=== PATIENT | female | born 1975 | race African-American/Black ===

== ENCOUNTER 2016-10-25 12:31 | Emergency (ER) | payer SELFPAY ==
[~2016-10-25] VITALS: Wt 78.0 kg
[~2016-10-25 12:31] MED LIST: ABCC1C PO; CYCL-319 PO; IBUP-1542 PO; TRAM50TA2 PO
== END 2016-10-25 14:29 | disposition left against medical advice (07) ==
LOC: FTE 12:31
DX: Z53.21 Procedure and treatment not carried out due to patient leaving prior to being seen by health care provider (principal)

== ENCOUNTER 2016-11-23 17:55 | Emergency (ER) | payer OTHER ==
[~2016-11-23] VITALS: Wt 54.0 kg
[2016-11-23] MEDS ORDERED: HYDROCODONE/APAP (5/325) TAB PO ONE (19:00)
[2016-11-23] MEDS ORDERED: CYCLOBENZAPRINE 10 MG TAB PO ONE (19:00)
[2016-11-23] MEDS ORDERED: HYDR-906 PO (19:10)
[2016-11-23] MEDS ORDERED: ORPH100T PO (19:10)
[2016-11-23 19:36] VITALS: BP 146/87; RESP 18
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
== END 2016-11-23 19:37 | disposition home or self-care (01) ==
LOC: FTE 17:55
DX: M54.2 Cervicalgia (principal); Z87.891 Personal history of nicotine dependence
CPT/HCPCS: Z7610 ×2; 99284

== ENCOUNTER 2017-02-23 03:10 | Emergency (ER) | payer OTHER ==
[~2017-02-23] VITALS: Ht 167.6 cm; Wt 54.5 kg
[~2017-02-23 03:10] MED LIST changes: +HYDR-906 PO; +ORPH100T PO
[2017-02-23] MEDS ORDERED: HYDROmorphONE 1 MG/ML SYG IV STA ×2 (03:13→03:17)
[2017-02-23] MEDS ORDERED: SOD CHLORIDE 0.9% IV ONE (03:24)
[2017-02-23 03:25] VITALS: Ht 167.6 cm; Wt 54.5 kg
[2017-02-23] MEDS ORDERED: HYDROmorphONE 2 MG/ML SYG IV STA (03:25)
[2017-02-23] MEDS ORDERED: DIPHTH/TET/ACEL PERTUSS (ADULT) 0.5 ML VIAL IM* ONE (03:30)
--- NOTE | 2017-02-23 03:38 | RADRPT ---
PROCEDURE: XR Chest. CLINICAL INDICATION: Trauma, chest pain TECHNIQUE: Single frontal view of the chest was obtained COMPARISON: 03/23/2016 FINDINGS: The heart and mediastinum are within normal limits. Patchy densities are seen in bilateral lower lungs which could be secondary to lung contusions with history of trauma. Several of these have a rounded consideration and follow-up is recommended to ev aluate for possible nodular densities. There is no pleural effusion or pneumothorax. IMPRESSION: Patchy densities are seen in bilateral lower lungs which could be secondary to lung contusions with history of trauma. Several of these have a rounded consideration and follow-up is recommended to ev aluate for possible nodular densities. RPTAT: HJES .Khris Vargas MD, MD Date Time Electronically viewed and signed by .Khris Vargas MD, on 02/23/2017 03:38 .S/
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
[2017-02-23] MEDS ORDERED: PROPOFOL 100 ML ONE ×2 (03:50→08:13)
[2017-02-23] MEDS ORDERED: HYDROmorphONE 1 MG/ML SYG IV PRN (04:00)
[2017-02-23 04:09] LABS: ALBUMIN 1.6 g/dl (3.3-4.9); CALCIUM 7.1 mg/dl (8.4-10.2); CREATININE 0.38 mg/dl (0.44-1.00); POTASSIUM 3.7 mmol/L (3.5-5.1); TOTAL PROTEIN 3.1 g/dl (6.1-8.1)
[2017-02-23 04:12] LABS: INR 1.97; PARTIAL THROMBOPLASTIN TIME 38.1 Sec (25.0-35.0); PROTIME 22.6 Sec (12.2-14.2); PT RATIO 1.8
[2017-02-23] MEDS ORDERED: LACTATED RINGER'S 2,200 ML IV ONE ×2 (04:24→11:30)
[2017-02-23 04:27] LABS: ABNORMAL IP MESSAGE 1; BASOPHILS % 0.2 % (0.0-2.0); EOSINOPHILS % 0.2 % (0.0-7.0); HEMATOCRIT 16.7 % (37.0-47.0); LYMPHOCYTES # 1.2 10^3/ul (0.8-2.9); LYMPHOCYTES % 18.8 % (15.0-51.0); MEAN CORPUSCULAR HEMOGLOBIN 28.7 pg (29.0-33.0); MEAN CORPUSCULAR HGB CONC 31.1 g/dl (32.0-37.0); MEAN CORPUSCULAR VOLUME 92.3 fl (82.0-101.0); MEAN PLATELET VOLUME 11.4 fl (7.4-10.4); MONOCYTE # 0.4 10^3/ul (0.3-0.9); MONOCYTES % 5.7 % (0.0-11.0); NEUTROPHIL # 4.7 10^3/ul (1.6-7.5); NEUTROPHILS % 74.3 % (39.0-77.0); PLATELET COUNT 141 10^3/UL (140-415); RED BLOOD COUNT 1.81 10^6/ul (4.20-5.40); RED CELL DISTRIBUTION WIDTH 16.1 % (11.5-14.5)
[2017-02-23] MEDS ORDERED: DEXTROSE 50% 50 ML SYRINGE IV ONE (04:30)
[2017-02-23 04:31] LABS: POSITIVE DIFF @See below
[2017-02-23 04:35] LABS: HEMOGLOBIN 5.2 g/dl (12.0-16.0)
--- NOTE | 2017-02-23 05:15 | RADRPT ---
PROCEDURE: CHEST - 1 VIEW February 23, 2017 of 04:12 a.m. CLINICAL INDICATION: 41-year-old female with respiratory distress. TECHNIQUE: A single frontal AP portable view of the chest was performed. The images were reviewed on a PACS workstation. COMPARISON: Chest x-ray March 23, 2016; chest x-ray February 23, 2017 at 03:28 a.m. FINDINGS: There has been interval placement of endotracheal tube with the tip in the upper trachea approximate ly 8.5 cm above the yury. There is a nasogastric tube identified within the left upper quadrant s tomach region. The cardiomediastinal silhouette has a normal appearance. There is been clearing of the previously identified lower lung zone atelectasis. There is no evidence for an infiltrate. Ther e is no evidence for congestive heart failure. There is no evidence for pneumothorax. The osseous st ructures are intact. IMPRESSION: 1. Endotracheal tube with the tip in the upper trachea. 2. Nasogastric tube in place. 3. Better inspiration with clearing bilateral lower lung zone atelectasis. .Nolberto Romero MD, MD Date Time Electronically viewed and signed by .Nolberto Romero MD, on 02/23/2017 05:14 .M/
[2017-02-23 05:16] LABS: AADO2 Arterial 41.9 mmHg (7.0-24.0); Allen Test ACCEPTAB; Arterial COHb 5.2 % (0.0-3.0); Arterial Fraction of Oxyhgb 93.1 % (93.0-99.0); Arterial HCO3 17.3 mmol/L (22.0-26.0); Arterial MetHb 0.4 % (0.0-1.5); Arterial Total Hemglobin 10.9 g/dl (12.0-18.0); MODE VENT - AC
[2017-02-23 05:55] LABS: OVALOCYTES 1+ (0-0)
[2017-02-23] MEDS ORDERED: NAPR-260 PO (05:55)
[2017-02-23 05:56] LABS: BURR CELLS 2+
[2017-02-23] MEDS ORDERED: FENTAnyl (DRIP) 1000 mcg/100mL 100 ML IV SCH (06:00)
[2017-02-23] MEDS ORDERED: MIDAZOLAM (DRIP) 50 mg/50 mL 50 ML IV SCH (06:00)
[2017-02-23] MEDS ORDERED: PROPOFOL 100 ML IV STA ×2 (06:13→08:11)
[2017-02-23] MEDS ORDERED: ROCURONIUM 50 MG INJ ONE (07:00)
[2017-02-23] MEDS ORDERED: MIDAZOLAM 1 MG/ML 2 ML INJ IV ONE (07:00)
[2017-02-23] MEDS ORDERED: PROPOFOL 200 MG INJ ONE (07:00)
[2017-02-23] MEDS ORDERED: ETOMIDATE 20 MG INJ ONE (07:00)
[2017-02-23] MEDS ORDERED: FENTAnyl 50 MCG/ML VIAL IV ONE (07:00)
[2017-02-23 08:05] LABS: CALCIUM 8.1 mg/dl (8.4-10.2); CREATININE 0.55 mg/dl (0.44-1.00); POTASSIUM 3.3 mmol/L (3.5-5.1)
[2017-02-23 08:25] LABS: BASOPHILS % 0.3 % (0.0-2.0); EOSINOPHILS % 0.2 % (0.0-7.0); HEMATOCRIT 30.9 % (37.0-47.0); HEMOGLOBIN 9.9 g/dl (12.0-16.0); LYMPHOCYTES # 1.2 10^3/ul (0.8-2.9); LYMPHOCYTES % 13.1 % (15.0-51.0); MEAN CORPUSCULAR HEMOGLOBIN 29.6 pg (29.0-33.0); MEAN CORPUSCULAR VOLUME 92.5 fl (82.0-101.0); MEAN PLATELET VOLUME 11.8 fl (7.4-10.4); MONOCYTE # 0.5 10^3/ul (0.3-0.9); MONOCYTES % 5.8 % (0.0-11.0); NEUTROPHILS % 80.1 % (39.0-77.0); PLATELET COUNT 235 10^3/UL (140-415); RED BLOOD COUNT 3.34 10^6/ul (4.20-5.40); RED CELL DISTRIBUTION WIDTH 16.5 % (11.5-14.5); WHITE BLOOD COUNT 8.8 10^3/ul (4.8-10.8)
[2017-02-23 09:30] VITALS: BP 152/76; PULSE 74; RESP 14; TEMP 97.6
[2017-02-26 09:45] LABS: WHITE BLOOD COUNT 6.3 10^3/ul (4.8-10.8)
== END 2017-02-23 09:49 | disposition short-term general hospital (02) ==
LOC: E/R 03:10
DX: T52.0X1A Toxic effect of petroleum products, accidental (unintentional), initial encounter (principal); F17.210 Nicotine dependence, cigarettes, uncomplicated; T20.62XA Corrosion of second degree of lip(s), initial encounter; T22.632A Corrosion of second degree of left upper arm, initial encounter; T22.631A Corrosion of second degree of right upper arm, initial encounter; T23.631A Corrosion of second degree of multiple right fingers (nail), not including thumb, initial encounter; T22.652A Corrosion of second degree of left shoulder, initial encounter; R07.9 Chest pain, unspecified; X04.XXXA Exposure to ignition of highly flammable material, initial encounter; Y92.9 Unspecified place or not applicable; Z23 Encounter for immunization
CPT/HCPCS: 31500; 36600; 51702; 71010; 80048; 80076; 80306; 82803; 83605; 84703; 85025; 85610; 85730; 86850; 86900; 86901; 90715; 94002; J1170; J2250; J3010; J7030; J7120; Z7610; 90471; 96361; 96374; 96375

== ENCOUNTER 2017-12-12 15:18 | Day surgery (SDC) | END 2017-12-12 19:15 | disposition home or self-care (01) ==

== ENCOUNTER 2018-03-01 07:49 | Emergency (ER) | END 2018-03-01 09:10 | disposition home or self-care (01) ==

== ENCOUNTER 2018-09-21 14:16 | Emergency (ER) | payer OTHER ==
[~2018-09-21] VITALS: Ht 167.6 cm; Wt 54.5 kg
[~2018-09-21 14:16] MED LIST changes: -CYCL-319 PO; +CYCL10TA7 PO; +FER325 PO; +FOLIC ACID PO; +HYDR-4011 PO; -HYDR-906 PO; +NAPR-985 PO; +PREN1TAB79 PO
[2018-09-21 14:18] VITALS: BP 117/64; PULSE 93; RESP 16; Ht 167.6 cm; Wt 54.5 kg
--- NOTE | 2018-09-21 15:13 | ERD ---
ER Documentation Chief Complaint Chief Complaint pt bib family with c/o sore throat x 4 days "bump to back of throat" HPI 42-year-old female in 16-week of presents due to feeling a mass right side of her throat as well as having sore throat for the past 4 days. Patient states that she feels it when he swallows but denies difficulty swallowing, drooling, trismus. Patient also denies fevers, cough. In addition patient states that she has been feeling diminished movement for the past 2 days. She had one episode 2 days ago where she experienced periumbilical pain which resolved quickly on its own. Denies spotting, current abdominal pain. Denies past medical history. Denies allergies. Denies medications. Denies alcohol, tobacco, drug use. Up to date on vaccines. ROS All systems reviewed and are negative except as per history of present illness. Medications Home Meds Active Scripts Ibuprofen* (Motrin*) 600 Mg Tab, 600 MG PO Q6H PRN for PAIN AND OR ELEVATED TEMP, #30 TAB Prov:KEE MILLER 03/01/18 Hydrocodone/Acetaminophen ([place] 5-325 Tablet) 1 Each Tablet, 1 TAB PO Q6H PRN for PAIN, #10 TAB Prov:JASON WELCH 11/23/16 Orphenadrine Citrate (Norflex) 100 Mg Tablet.sa, 100 MG PO BID for 5 Days, TAB.SA Prov:YURI,JASON C 11/23/16 Cyclobenzaprine Hcl* (Cyclobenzaprine Hcl*) 10 Mg Tablet, 10 MG PO TID, #15 TAB 0 Refills Prov:CLAUDIA SMITH NP 05/24/16 Ibuprofen* (Motrin*) 600 Mg Tab, 600 MG PO Q6 for 5 Days, #20 TAB 0 Refills Prov:CLAUDIA SMITH NP 05/24/16 Tramadol HCl (Tramadol HCl) 50 Mg Tablet, 50 MG PO Q6, #20 TAB Prov:ALAN CASTRO DO 03/23/16 Reported Medications Ferrous Sulfate* (Ferrous Sulfate*) 325 Mg Tabec, 325 MG PO DAILY, TAB 12/12/17 [Folic Acid] No Conflict Check, PO DAILY 12/12/17 Vit W-Ca,Fe,FA(<1 mg) ( Vitamins) 1 Each Tablet, 1 EACH PO DAILY, TAB 12/12/17 Naproxen* (Naprosyn*) 500 Mg Tablet, 500 MG PO BID, TAB 02/23/17 Hnovradzikngz-Rddsrmsrzg-Mztfwzlf-Codeine* (Fioricet w/Codeine*) [id number]-30MG Cap, 1 CAP PO BID PRN for PAIN LEVEL 1-5, CAP 03/23/16 Allergies Allergies: Coded Allergies: No Known Allergy (Verified , 03/23/16) PMhx/Soc History of Surgery: Yes (C SECTION X3,SKIN GRAFTS,UMBILICAL HERNIAREPAIR,APPENDECTOMY) Anesthesia Reaction: No Hx Neurological Disorder: Yes (MIGRAINES) Hx Respiratory Disorders: No Hx Cardiac Disorders: No Hx Psychiatric Problems: No Hx Miscellaneous Medical Probl: No Hx Alcohol Use: No Hx Substance Use: No Hx Tobacco Use: Yes Smoking Status: Former smoker FmHx Family History: No diabetes, No coronary disease, No other Physical Exam Vitals Vital Signs Date Temp Pulse Resp B/P (MAP) Pulse Ox O2 O2 Flow FiO2 Time Delivery Rate 09/21/18 98.3 93 16 117/64 99 14:18 (81) Physical Exam Const: No acute distress Head: Atraumatic Eyes: Normal Conjunctiva ENT: Normal External Ears, Nose and Mouth. Tonsils are nonerythematous or edematous without exudates bilaterally. Uvula is midline. Airway is patent and no masses noted. Neck: Full range of motion. No meningismus. Resp: Clear to auscultation bilaterally Cardio: Regular rate and rhythm, no murmurs Abd: Soft, non tender, non distended. Normal bowel sounds Ext: No cyanosis, or edema Neur: Awake and alert Psych: Normal Mood and Affect Result Diagram: 09/21/18 1514 09/21/18 1514 Results 24 hrs Laboratory Tests Test 09/21/18 15:09 09/21/18 15:14 Urine Color YELLOW Urine Clarity SLIGHTLY CLOUDY Urine pH 5.0 Urine Specific [place] 1.019 Urine Ketones NEGATIVE mg/dL Urine Nitrite NEGATIVE mg/dL Urine Bilirubin 1+ mg/dL Urine Urobilinogen NEGATIVE mg/dL Urine Leukocyte Esterase NEGATIVE Yoly/ul Urine Microscopic RBC 34 /HPF Urine Microscopic WBC 2 /HPF Urine Mucus FEW /HPF Urine Hemoglobin 3+ mg/dL Urine Glucose NEGATIVE mg/dL Urine Total Protein NEGATIVE mg/dl White Blood Count 9.9 10^3/ul Red Blood Count 2.90 10^6/ul Hemoglobin 10.9 g/dl Hematocrit 29.4 % Mean Corpuscular Volume 101.4 fl Mean Corpuscular Hemoglobin 37.6 pg Mean Corpuscular Hemoglobin Concent 37.1 g/dl Red Cell Distribution Width 14.6 % Platelet Count 239 10^3/UL Mean Platelet Volume 10.1 fl Immature Granulocytes % 0.500 % Neutrophils % 66.6 % Lymphocytes % 20.2 % Monocytes % 7.1 % Eosinophils % 5.1 % Basophils % 0.5 % Nucleated Red Blood Cells % 0.0 /100WBC Immature Granulocytes # 0.050 10^3/ul Neutrophils # 6.6 10^3/ul Lymphocytes # 2.0 10^3/ul Monocytes # 0.7 10^3/ul Eosinophils # 0.5 10^3/ul Basophils # 0.1 10^3/ul Nucleated Red Blood Cells # 0.0 10^3/ul Sodium Level 136 mmol/L Potassium Level 4.7 mmol/L Chloride Level 104 mmol/L Carbon Dioxide Level 27 mmol/L Anion Gap 5 Blood Urea Nitrogen 11 mg/dl Creatinine 0.42 mg/dl Est Glomerular Filtrat Rate mL/min > 60 mL/min Glucose Level 90 mg/dl Calcium Level 10.1 mg/dl Total Bilirubin 0.0 mg/dl Direct Bilirubin 0.00 mg/dl Indirect Bilirubin 0.0 mg/dl Aspartate Amino Transf (AST/SGOT) 29 IU/L Alanine Aminotransferase (ALT/SGPT) 18 IU/L Alkaline Phosphatase 60 IU/L Total Protein 7.7 g/dl Albumin 4.4 g/dl Globulin 3.30 g/dl Albumin/Globulin Ratio 1.33 Beta HCG, Quantitative 67261.0 mIU/ml Procedures/MDM DIAGNOSTIC IMAGING REPORT Patient: KEHINDE DORAN : 1975 Age: 42 Sex: F MR #: [id number] DOS: 09/21/18 1458 Ordering MD: EULALIA THAYER Location: [facility] Room/Bed: PROCEDURE: Ultrasound soft tissue neck non-vascular. CLINICAL INDICATION: Right neck mass. TECHNIQUE: Targeted sonographic evaluation of the area of clinical interest in the right neck was performed using a high-frequency transducer using moncada scale and color Doppler techniques. COMPARISON: None. FINDINGS: Targeted sonographic evaluation of the right neck demonstrates a normal appearing right submandibular gland, measuring 3.1 x 2.9 x 1.2 cm. There is no free fluid or fluid collection. No lymphadenopathy. No mass. IMPRESSION: Targeted sonographic evaluation of the area of clinical concern in the right neck demonstrates no focal abnormality. RPTAT: EE .Jhonatan Lynch MD, MD Date Time Electronically viewed and signed by .Jhonatan Lynch MD, MD on 09/21/2018 16:31 .C/ CC: EULALIA THAYER [id number] DIAGNOSTIC IMAGING REPORT Patient: KEHINDE DORAN : 1975 Age: 42 Sex: F MR #: [id number] DOS: 09/21/18 1458 Ordering MD: EULALIA THAYER Location: [facility] Room/Bed: PROCEDURE: US OB. CLINICAL INDICATION: Decreased movement. TECHNIQUE: Multiple sonographic images of the pelvis were obtained. Transabdominal imaging only was performed. COMPARISON: 07/25/2018. FINDINGS: Cardiac activity is present with 148 beats per minute. Presentation is breech. Measurements were made in order to determine age. The results are as follows: BPD = 16 w 3 d HC = 16 w 3 d AC = 17 w 3 d FL = 16 w 2 d Estimated gestational age is approximately 16 weeks and 5 days. Estimated weight is 171 g. The placenta is fundal in location, with no evidence of previa. The maximum vertical pocket measures 6.5 cm. IMPRESSION: Single, live intrauterine with estimated age of 16 weeks, 5 days. No acute or significant abnormality. RPTAT: EE .Jhonatan Lynch MD, MD Date Time Electronically viewed and signed by .Jhonatan Lynch MD, MD on 09/21/2018 16:29 .C/ CC: EULALIA THAYER [id number] ER course: CBC, CMP, UA, transabdominal ultrasound, ultrasound, rapid strep. MDM: 42-year-old female in 16-week of presents due to feeling a mass right side of her throat as well as having sore throat for the past 4 days. Patient states that she feels it when he swallows but is not difficulty swallowing, drooling, trismus. Patient also denies fevers, cough. In addition patient states that she has been feeling diminished movement for the past 2 days. She had one episode 2 days ago where she experienced periumbilical pain which resolved quickly on its own. Denies spotting, current abdominal pain. Regarding sore throat, patient's throat exam was within normal limits and there was no sign of peritonsillar abscess. In addition I have low suspicion for retropharyngeal abscess or epiglottitis patient patient history and exam. Ultrasound was performed to x-rays patent patient's concern about palpable mass on her left mandibular area of the neck. Results were within normal limits. In addition an abdominal OB ultrasound was performed due to patient's pain of diminished movement over the last 2 days. Results were within normal limits as well. Results within normal limits for follow-up blood work as well as UA and rapid strep. Patient advised that she most likely has viral pharyngitis for which she can take Tylenol. Patient educated that ibuprofen is not appropriate to do her status. Patient discharged with strict ER precautions. Patient advised to follow up with PMD. All questions answered at discharge. Departure Diagnosis: Primary Impression: Sore throat Additional Impression: movement not palpable Trimester: second trimester Qualified Codes: Z34.92 - Encounter for supervision of normal , unspecified, second trimester Condition: Stable EULALIA THAYER Sep 21, 2018 15:13
== END 2018-09-21 17:15 | disposition home or self-care (01) ==
LOC: FTE 14:16
DX: O99.512 Diseases of the respiratory system complicating pregnancy, second trimester (principal); O36.8920 Maternal care for other specified fetal problems, second trimester, not applicable or unspecified; J02.9 Acute pharyngitis, unspecified; Z3A.16 16 weeks gestation of pregnancy
CPT/HCPCS: 76536; 76805; 80053; 81001; 84702; 85025; 87880; Z7502

== ENCOUNTER 2018-09-27 15:49 | Emergency (ER) | payer OTHER ==
[~2018-09-27] VITALS: Wt 71.0 kg
[2018-09-27 15:52] VITALS: Wt 71.0 kg
[2018-09-27] MEDS ORDERED: DIPHENHYDRAMINE 50 MG INJ IV STA (17:08)
[2018-09-27] MEDS ORDERED: METOCLOPRAMIDE 10 MG INJ IV STA (17:08)
[2018-09-27] MEDS ORDERED: SUMATRIPTAN 50 MG TAB PO STA (17:08)
[2018-09-27] MEDS ORDERED: SOD CHLORIDE 0.9% 1,000 ML IV STA (17:08)
[2018-09-27] MEDS ORDERED: ACETAMINOPHEN 325 MG TAB PO STA (17:08)
[2018-09-27] MEDS ORDERED: MAGNESIUM SULFATE 2 GM/50 ML 50 ML IVPB ONE (17:30)
--- NOTE | 2018-09-27 18:28 | ERD ---
ER Documentation Chief Complaint Chief Complaint HEADACHE WITH NAUSEA 17 WEEKS PREG HPI Is a 42-year-old female presents with a gradual onset headache times 3 days. Patient is currently 17 weeks , she states that she has been having nausea and vomiting associated with this, she went to [facility] yesterday, and states that they gave her Benadryl and Reglan, but this has not helped and the headache has persisted. She denies fever, she has some abdominal cramping, but no vaginal bleeding. She endorses photophobia. ROS All systems reviewed and are negative except as per history of present illness. Medications Home Meds Active Scripts Metoclopramide* (Reglan*) 10 Mg Tablet, 10 MG PO Q6 PRN for NAUSEA AND/OR VOMITING, #10 TAB Prov:REKHA SOLANO MD 09/27/18 Acetaminophen* (Tylophen*) 500 Mg Capsule, 2 CAP PO Q8H PRN for PAIN AND OR ELEVATED TEMP, #30 CAP Prov:REKHA SOLANO MD 09/27/18 Ibuprofen* (Motrin*) 600 Mg Tab, 600 MG PO Q6H PRN for PAIN AND OR ELEVATED TEMP, #30 TAB Prov:KEE MILLER 03/01/18 Hydrocodone/Acetaminophen ([place] 5-325 Tablet) 1 Each Tablet, 1 TAB PO Q6H PRN for PAIN, #10 TAB Prov:JASON WELCH 11/23/16 Orphenadrine Citrate (Norflex) 100 Mg Tablet.sa, 100 MG PO BID for 5 Days, TAB.SA Prov:JASON WELCH 11/23/16 Cyclobenzaprine Hcl* (Cyclobenzaprine Hcl*) 10 Mg Tablet, 10 MG PO TID, #15 TAB 0 Refills Prov:CLAUDIA SMITH NP 05/24/16 Ibuprofen* (Motrin*) 600 Mg Tab, 600 MG PO Q6 for 5 Days, #20 TAB 0 Refills Prov:CLAUDIA SMITH NP 05/24/16 Tramadol HCl (Tramadol HCl) 50 Mg Tablet, 50 MG PO Q6, #20 TAB Prov:ALAN CASTRO DO 03/23/16 Reported Medications Ferrous Sulfate* (Ferrous Sulfate*) 325 Mg Tabec, 325 MG PO DAILY, TAB 12/12/17 [Folic Acid] No Conflict Check, PO DAILY 12/12/17 Vit W-Ca,Fe,FA(<1 mg) ( Vitamins) 1 Each Tablet, 1 EACH PO DAILY, TAB 12/12/17 Naproxen* (Naprosyn*) 500 Mg Tablet, 500 MG PO BID, TAB 02/23/17 Gcnxalljhdkos-Yvuuexihgv-Kjhgjpmn-Codeine* (Fioricet w/Codeine*) [id number]-30MG Cap, 1 CAP PO BID PRN for PAIN LEVEL 1-5, CAP 03/23/16 Allergies Allergies: Coded Allergies: No Known Allergy (Verified , 03/23/16) PMhx/Soc History of Surgery: Yes (C SECTION X3,SKIN GRAFTS,UMBILICAL HERNIAREPAIR,APPENDECTOMY) Anesthesia Reaction: No Hx Neurological Disorder: Yes (MIGRAINES) Hx Respiratory Disorders: No Hx Cardiac Disorders: No Hx Psychiatric Problems: No Hx Miscellaneous Medical Probl: No Hx Alcohol Use: No Hx Substance Use: No Hx Tobacco Use: Yes Smoking Status: Former smoker Physical Exam Vitals Vital Signs Date Temp Pulse Resp B/P (MAP) Pulse Ox O2 O2 Flow FiO2 Time Delivery Rate 09/27/18 98.6 77 16 113/67 100 Room Air 21:34 (82) 09/27/18 98.9 67 16 113/68 99 Room Air 19:57 (83) 09/27/18 98.3 112 18 126/59 99 15:52 (81) Physical Exam Const: No acute distress Head: Atraumatic Eyes: Normal Conjunctiva ENT: Normal External Ears, Nose and Mouth. Neck: Full range of motion. No meningismus. Resp: Clear to auscultation bilaterally Cardio: Regular rate and rhythm, no murmurs Abd: Soft, non tender, non distended. Normal bowel sounds Skin: No petechiae or rashes Back: No midline or flank tenderness Ext: No cyanosis, or edema Neur: Awake and alert Psych: Normal Mood and Affect Result Diagram: 09/27/18174309/27/181743 Results 24 hrs Laboratory Tests Test 09/27/18 17:39 09/27/18 17:44 Urine Color YELLOW Urine Clarity SLIGHTLY CLOUDY Urine pH 5.0 Urine Specific [place] 1.023 Urine Ketones NEGATIVE mg/dL Urine Nitrite NEGATIVE mg/dL Urine Bilirubin NEGATIVE mg/dL Urine Urobilinogen NEGATIVE mg/dL Urine Leukocyte Esterase NEGATIVE Yoly/ul Urine Microscopic RBC 84 /HPF Urine Microscopic WBC 4 /HPF Urine Squamous Epithelial Cells FEW /HPF Urine Mucus MODERATE /HPF Urine Hemoglobin 3+ mg/dL Urine Glucose NEGATIVE mg/dL Urine Total Protein NEGATIVE mg/dl White Blood Count 10.5 10^3/ul Red Blood Count 3.01 10^6/ul Hemoglobin 10.5 g/dl Hematocrit 30.3 % Mean Corpuscular Volume 100.7 fl Mean Corpuscular Hemoglobin 34.9 pg Mean Corpuscular Hemoglobin Concent 34.7 g/dl Red Cell Distribution Width 14.4 % Platelet Count 217 10^3/UL Mean Platelet Volume 9.9 fl Immature Granulocytes % 0.500 % Neutrophils % 69.1 % Lymphocytes % 16.7 % Monocytes % 7.9 % Eosinophils % 5.3 % Basophils % 0.5 % Nucleated Red Blood Cells % 0.0 /100WBC Immature Granulocytes # 0.050 10^3/ul Neutrophils # 7.2 10^3/ul Lymphocytes # 1.8 10^3/ul Monocytes # 0.8 10^3/ul Eosinophils # 0.6 10^3/ul Basophils # 0.1 10^3/ul Nucleated Red Blood Cells # 0.0 10^3/ul Prothrombin Time 12.5 Sec Prothrombin Time Ratio 1.0 INR International Normalized Ratio 0.92 Activated Partial Thromboplast Time 32.1 Sec Sodium Level 135 mmol/L Potassium Level 4.2 mmol/L Chloride Level 104 mmol/L Carbon Dioxide Level 26 mmol/L Anion Gap 5 Blood Urea Nitrogen 10 mg/dl Creatinine 0.49 mg/dl Est Glomerular Filtrat Rate mL/min > 60 mL/min Glucose Level 95 mg/dl Calcium Level 9.5 mg/dl Total Bilirubin 0.2 mg/dl Direct Bilirubin 0.00 mg/dl Indirect Bilirubin 0.2 mg/dl Aspartate Amino Transf (AST/SGOT) 26 IU/L Alanine Aminotransferase (ALT/SGPT) 24 IU/L Alkaline Phosphatase 57 IU/L Total Protein 7.2 g/dl Albumin 3.9 g/dl Globulin 3.30 g/dl Albumin/Globulin Ratio 1.18 Beta HCG, Quantitative 34270.0 mIU/ml Current Medications Medications Dose Sig/Mackenzie Start Time Status Last (Trade) Ordered Route PRN Stop Time Admin Dose Reason Admin Sodium 1,000 ml @ Q1H STAT 09/27/18 DC 09/27/18 Chloride 1,000 mls/hr IV 17:08 17:42 09/27/18 18:07 650 mg ONCE STAT 09/27/18 DC 09/27/18 Acetaminophen PO 17:08 17:41 (Tylenol 09/27/18 17:09 Tab) 10 mg ONCE STAT 09/27/18 DC 09/27/18 Metoclopramid IV 17:08 17:41 e HCl 09/27/18 17:09 (Reglan) 25 mg ONCE STAT 09/27/18 DC 09/27/18 Diphenhydrami IV 17:08 17:41 ne HCl 09/27/18 17:09 (Benadryl) Sumatriptan 50 mg ONCE STAT 09/27/18 DC 09/27/18 Succinate PO 17:08 17:42 (Imitrex) 09/27/18 17:09 Magnesium 50 ml @ 25 ONCE ONCE 09/27/18 DC 09/27/18 Sulfate mls/hr IVPB 17:30 19:30 09/27/18 19:29 Procedures/MDM Is a 42-year-old female who is currently who presents for evaluation of headache. Exam revealed no neurologic deficits, and she was afebrile, her headache was gradual onset, I do not suspect subarachnoid hemorrhage, additionally her headache was similar to prior migraine headaches. MRV was performed to evaluate for cavernous sinus thrombosis as puts her at risk for this, this was negative, and she experienced some improvement in her symptoms, she remained ambulatory, and had no fever or neurologic deficits in the ED. She had some improvement in her headache, however I advised her to follow-up with her [facility] doctor, should she need further pain medications. She was given Imitrex here in the ED, which is category C for , I discussed this with her prior to administering, and she agreed to this, at discharge the patient was in no acute distress. Departure Diagnosis: Primary Impression: Headache Headache type: unspecified Headache chronicity pattern: acute headache Intractability: not intractable Qualified Codes: R51 - Headache Condition: Stable REKHA SOLANO MD Sep 27, 2018 18:28
[2018-09-27] MEDS ORDERED: METO10TA92 PO (20:33)
[2018-09-27] MEDS ORDERED: ACET500C5 PO (20:33)
[2018-09-27 21:34] VITALS: BP 113/67; PULSE 77; RESP 16
== END 2018-09-27 21:35 | disposition home or self-care (01) ==
LOC: FTE 15:49
DX: O99.89 Other specified diseases and conditions complicating pregnancy, childbirth and the puerperium (principal); R51 Headache; O21.9 Vomiting of pregnancy, unspecified; R10.9 Unspecified abdominal pain; Z3A.17 17 weeks gestation of pregnancy; Z87.891 Personal history of nicotine dependence
CPT/HCPCS: 36415; 70544; 76805; 80053; 81001; 84702; 85025; 85610; 85730; 86900; 86901; 96361; 96365; 96366; 96375; J1200; J2765; J3475; J7030; Z7502; Z7610

== ENCOUNTER 2018-10-01 19:23 | Emergency (ER) | payer OTHER ==
[~2018-10-01] VITALS: Ht 167.6 cm; Wt 58.8 kg
[~2018-10-01 19:23] MED LIST changes: +ACET500C5 PO; +METO10TA92 PO
[2018-10-01 19:49] VITALS: Ht 167.6 cm; Wt 58.8 kg
[2018-10-01] MEDS ORDERED: METOCLOPRAMIDE 10 MG INJ IV STA (23:14)
[2018-10-01] MEDS ORDERED: SOD CHLORIDE 0.9% 1,000 ML IV STA (23:14)
[2018-10-01] MEDS ORDERED: DIPHENHYDRAMINE 50 MG INJ IV STA (23:14)
[2018-10-02 01:00] VITALS: BP 92/54; PULSE 75; RESP 16
--- NOTE | 2018-10-02 23:54 | ERD ---
ER Documentation Chief Complaint Chief Complaint SALMERON WITH RADIAITING PAIN THOUGHOUT BACK HPI This is 42 year old F at 17 weeks gestation with hx of migraine headaches who presents to the ED with complaints of migraine headache x 6 days. Pt states her headache has been gradual onset but now constant over the past several days. Headache is throbbing in quality, originating at her bilateral temporal scalp and radiating backwards to her occipital scalp. This is similar to her previous migraine headaches. Reports associated photophobia and phonophobia. Has had no relief with Tylenol. She has an appointment with PCP towards the end of the month for referral to a neurologist. Denies any known precipitating factors. Denies any nausea, vomiting, fevers, chills, changes in vision, numbness, tingling or focal weakness. Pt states that she had an amniocentesis yesterday and has been having suprapubic abdominal cramping and is requesting pelvic US. No vaginal bleeding/discharge or urinary complaints. ROS All systems reviewed and are negative except as per history of present illness. Medications Home Meds Active Scripts Metoclopramide* (Reglan*) 10 Mg Tablet, 10 MG PO Q6 PRN for NAUSEA AND/OR VOMITING, #10 TAB Prov:REKHA SOLANO MD 09/27/18 Acetaminophen* (Tylophen*) 500 Mg Capsule, 2 CAP PO Q8H PRN for PAIN AND OR ELEVATED TEMP, #30 CAP Prov:REKHA SOLANO MD 09/27/18 Ibuprofen* (Motrin*) 600 Mg Tab, 600 MG PO Q6H PRN for PAIN AND OR ELEVATED TEMP, #30 TAB Prov:KEE MILLER 03/01/18 Hydrocodone/Acetaminophen ([place] 5-325 Tablet) 1 Each Tablet, 1 TAB PO Q6H PRN for PAIN, #10 TAB Prov:YURIJASON LEI C 11/23/16 Orphenadrine Citrate (Norflex) 100 Mg Tablet.sa, 100 MG PO BID for 5 Days, KERRI BarahonaSA Prov:YURIJASON C 11/23/16 Cyclobenzaprine Hcl* (Cyclobenzaprine Hcl*) 10 Mg Tablet, 10 MG PO TID, #15 TAB 0 Refills Prov:CLAUDIA SMITH, SERVOMECHANISM ASSEMBLER 05/24/16 Ibuprofen* (Motrin*) 600 Mg Tab, 600 MG PO Q6 for 5 Days, #20 TAB 0 Refills Prov:CLAUDIA SMITH, ZAC 05/24/16 Tramadol HCl (Tramadol HCl) 50 Mg Tablet, 50 MG PO Q6, #20 TAB Prov:ALAN CASTRO DO 03/23/16 Reported Medications Ferrous Sulfate* (Ferrous Sulfate*) 325 Mg Tabec, 325 MG PO DAILY, TAB 12/12/17 [Folic Acid] No Conflict Check, PO DAILY 12/12/17 Vit W-Ca,Fe,FA(<1 mg) ( Vitamins) 1 Each Tablet, 1 EACH PO DAILY, TAB 12/12/17 Naproxen* (Naprosyn*) 500 Mg Tablet, 500 MG PO BID, TAB 02/23/17 Ivmtfnoqxibke-Waknjxcedl-Mxqohvbk-Codeine* (Fioricet w/Codeine*) [id number] Cap, 1 CAP PO BID PRN for PAIN LEVEL 1-5, CAP 03/23/16 Allergies Allergies: Coded Allergies: No Known Allergy (Verified , 03/23/16) PMhx/Soc History of Surgery: Yes (C SECTION X3,SKIN GRAFTS,UMBILICAL HERNIAREPAIR,APPENDECTOMY) Anesthesia Reaction: No Hx Neurological Disorder: Yes (MIGRAINES) Hx Respiratory Disorders: No Hx Cardiac Disorders: No Hx Psychiatric Problems: No Hx Miscellaneous Medical Probl: No Hx Alcohol Use: No Hx Substance Use: No Hx Tobacco Use: Yes Smoking Status: Never smoker Physical Exam Vitals Vital Signs Date Temp Pulse Resp B/P (MAP) Pulse Ox O2 O2 Flow FiO2 Time Delivery Rate 10/02/18 98.1 75 16 92/54 (67) 100 Room Air 01:00 10/01/18 98.8 95 18 131/57 99 19:49 (81) Physical Exam Const: No acute distress Head: Atraumatic Eyes: Normal Conjunctiva ENT: Normal External Ears, Nose and Mouth. Neck: Full range of motion. No meningismus. Resp: Clear to auscultation bilaterally Cardio: Regular rate and rhythm, no murmurs Abd: + Gravid abdomen. Soft, non tender, non distended. Normal bowel sounds Skin: No petechiae or rashes Back: No midline or flank tenderness Ext: No cyanosis, or edema Neuro: M/S: Alert and oriented Face: EOMI, face and pharynx with normal sensation and function Motor: Normal strength throughout Sensation: Normal sensation throughout Speech: Normal Cerebel: Normal coordination Normal gait Normal finger to nose DTR: 2+ and symmetric upper/lower extremities Psych: Normal Mood and Affect Results 24 hrs Current Medications Medications Dose Sig/[place] Start Time Status Last (Trade) Ordered Route PRN Stop Time Admin Dose Reason Admin Sodium 1,000 ml @ Q1H STAT 10/01/18 DC 10/01/18 Chloride 1,000 mls/hr IV 23:14 23:49 10/02/18 00:13 10 mg ONCE STAT 10/01/18 DC 10/01/18 Metoclopramid IV 23:14 23:49 e HCl 10/01/18 23:16 (Reglan) 25 mg ONCE STAT 10/01/18 DC 10/01/18 Diphenhydrami IV 23:14 23:49 ne HCl 10/01/18 23:16 (Benadryl) Procedures/MDM EMERGENT LABS AND DIAGNOSTIC STUDIES: Radiology Results as interpreted by Radiology: PROCEDURE: US OB. CLINICAL INDICATION: abdominal cramping TECHNIQUE: Multiple sonographic images of the pelvis were obtained. The images were reviewed on a PACS workstation. COMPARISON: US 09/27/2018 FINDINGS: There is a single live intrauterine gestation. Cardiac activity is present with 150 beats per minute. There is a breech presentation. Measurements were made in order to determine age. The results are as follows: BPD = 3.9 cm HC = 13.9 cm AC = 12.8 cm FL = 2.7 cm Estimated gestational age of approximately 17 weeks 6 days. The estimated date of delivery is 03/05/2019. The EFW = 224 g, which is at the 34th percentile. The placenta is posterior. There is no evidence for an abruption or placenta previa. There is a normal amount of amniotic fluid with a maximal vertical pocket measuring 4.7 cm. IMPRESSION: Single live intrauterine gestation of approximately 17 weeks 6 days. The estimated date of delivery is 03/05/2019 . No evidence of placental abruption or previa. RPTAT:HCLE michaela Vaca, Physician Date Time Electronically viewed and signed by michaela Vaca Physician on 10/02/2018 00:18 Nursing Notes Reviewed. Previous Medical Records requested via the Electronic Health Record. EMERGENCY DEPARTMENT COURSE / MEDICAL DECISION MAKING: This is a 42 year old F at 17 weeks gestation with history of migraine headaches who presents to the ED with a migraine SALMERON. This is pts third visit to the ED this month for same. MRA of the brain from her previous visit was negative for any venous thrombosis. I do not think pt needs any further imaging as this is an acute exacerbation of her usual migraine HAs. She has no focal neurological deficits on physical exam. She has no signs or symptoms to suggest SAH, epidural/subdural hematoma, meningitis or encephalitis. SALMERON improved status post IVFs, Reglan and Benadryl. I recommended pt take Tylenol or Reglan, which she was provided a rx for at prior visit. I discussed that her migraine HAs should be managed by either her OBGYN or a neurologist, pt understands. Pt also complaining of lower abd cramping status post amniocentesis yesterday. Pelvic US was obtained per request of the pt. US revealed a single IUP. Negative for oligohyrodosis, placenta abrupto, placenta previa or vasa previa. She was given copy of these results and discharged home with close follow up. Strict return precautions given. 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 Departure Diagnosis: Primary Impression: Headache Headache type: unspecified Headache chronicity pattern: acute headache Intractability: not intractable Qualified Codes: R51 - Headache Additional Impressions: Weeks of gestation: 17 weeks Qualified Codes: Z3A.17 - 17 weeks gestation of Abdominal cramping Condition: Stable Patient Instructions: Self-Care for Headaches Referrals: DOCTOR,NOT ON STAFF (PCP) Additional Instructions: I recommend seeing your regular doctor sooner for possible referral to a neurologist for further management of your migraine headaches. I have given you Roverto and Robyn here with improvement of her symptoms. Continue taking Tylenol for relief at home. Return to the ED for any new or worsening symptoms. CHASITY VARGAS PA-C Oct 02, 2018 23:52
== END 2018-10-02 01:00 | disposition home or self-care (01) ==
LOC: FTE 19:23
DX: O99.89 Other specified diseases and conditions complicating pregnancy, childbirth and the puerperium (principal); R51 Headache; O26.892 Other specified pregnancy related conditions, second trimester; R10.9 Unspecified abdominal pain; Z3A.17 17 weeks gestation of pregnancy
CPT/HCPCS: 76805; 96361; 96374; 96375; J1200; J2765; J7030; Z7502

== ENCOUNTER 2018-12-11 17:36 | Outpatient (CLI) | payer OTHER ==
[~2018-12-11] VITALS: Ht 167.6 cm; Wt 63.7 kg
[2018-12-11 17:55] VITALS: Ht 167.6 cm; Wt 63.7 kg
[2018-12-11 17:56] VITALS: BP 110/57; PULSE 88
--- NOTE | 2018-12-11 19:22 | TRIAGE ---
OB Triage Datetime Report Generated by CPN: 12/11/2018 19:21 Datetime: 12/11/2018 19:03 Stage of : OB Triage Datetime: 12/11/2018 18:59 Stage of : OB Triage Labor Evaluation Frequency: 0 Monitor Mode: External Pattern: Normal: <= 5 Contractions in 10 Minutes Resting Tone [place]: Relaxed Heart Rate FHR Baseline Rate: 145 Monitor Mode: External US Variability: Moderate 6-25 bpm Accelerations: 10X10 Decelerations: None Category: Category I Pain Assessment Pain Scale: 7 Pain Presence: Constant Pain Type: Ache Pain Location: Face; Other Pain Goal: 3 Pain Relief Measures: Comfort Measures Pain Assessment Comments: pain in rt ear Datetime: 12/11/2018 18:01 Stage of : OB Triage Datetime: 12/11/2018 17:52 Stage of : OB Triage Assessment Type: Triage Maternal Assessment Level of Consciousness: Fully Conscious DTR's/Clonus: DTRs 2+; No Clonus Headache: Denies Blurred Vision: No Respiratory Effort: Unlabored; Regular Rhythm; Equal Expansion Breath Sounds, Left: Clear and Equal Breath Sounds, Right: Clear and Equal Nausea/Vomiting: Denies RUQ Epigastric Pain: Denies Facial Edema: None Temperature Route: Axillary Fall Risk Assessment History of Falling: (0) No Secondary Diagnosis: (0) No Ambulatory Aid: (0) Bedrest/Nurse Assist IV Therapy: (0) No Gait: (0) Normal/Bedrest/Immobile Mental Status: (0) Oriented to Own Ability Fall Score: 0 Fall Risk Score Definition: No Risk: No action required Labor Evaluation Frequency: 0 Monitor Mode: External Pattern: Normal: <= 5 Contractions in 10 Minutes Resting Tone [place]: Relaxed Heart Rate FHR Baseline Rate: 140 Monitor Mode: External US Variability: Moderate 6-25 bpm Accelerations: 10X10 Decelerations: None Category: Category I Pain Assessment Pain Scale: 8 Pain Presence: Constant Pain Type: Sharp; Ache Pain Location: Face (Annotations: RT EAR) Pain Goal: 3 Pain Relief Measures: Comfort Measures Datetime: 12/11/2018 17:51 EGA: 27.6 Datetime: 12/11/2018 17:50 Time of Arrival: 12/11/2018 17:34 Arrived By: Ambulatory Arrived From: Home Chief Complaint: C/O EAR ACHED X 3 DAYS, AND DFM TODAY, DENIES BLEEDING OR LEAKING Movement: Decreased Contractions: Denies/Absent Rupture of Membranes: Denies Vaginal Bleeding: None Vaginal Discharge: Denies Recent Sexual Intercouse: Denies Abdominal Trauma: Not Applicable Patient Complaints: None Time Provider Notified: 12/11/2018 18:01 Provider Notified: SHAYLEE Initial Plan: MONITOR, BPP
--- NOTE | 2018-12-11 21:38 | PN ---
Triage Information Date/Time 12/11/1804/23/2134 Reason for visit: DFM (earache) Weeks of Gestation 27w6d /Para Diabetes: none Hypertention: none Objective Vital Signs Date Temp Pulse Resp B/P (MAP) Pulse Ox O2 O2 Flow FiO2 Time Delivery Rate 12/11/18 98.4 88 110/57 17:56 (74) Heart Rate: 140's Heart Rate Comments CAT I Contractions: None Results/Medications Imaging Results BPP 03/12 TIGRE 12.9 Disposition: Assessment/Plan A IUP 27w6d DFM otalgia P to ER for otalgia RTH prn BEN JUNE MD December 11, 2018 21:38
== END 2018-12-11 19:15 | disposition home or self-care (01) ==
LOC: OBT 17:36 → L-D 17:38 → OBT 19:15
PROVIDERS: ATTEND Obstetrics & Gynecology
DX: O36.8120 Decreased fetal movements, second trimester, not applicable or unspecified (principal); O26.892 Other specified pregnancy related conditions, second trimester; H92.09 Otalgia, unspecified ear; O09.522 Supervision of elderly multigravida, second trimester; Z3A.27 27 weeks gestation of pregnancy
CPT/HCPCS: 76818; Z7500; G0463

== ENCOUNTER 2019-01-14 18:27 | Outpatient (CLI) | payer OTHER ==
[~2019-01-14] VITALS: Ht 167.6 cm; Wt 65.4 kg
[~2019-01-14 18:27] MED LIST changes: -ABCC1C PO; -ACET500C5 PO; -CYCL10TA7 PO; -HYDR-4011 PO; -IBUP-1542 PO; -METO10TA92 PO; -NAPR-985 PO; -ORPH100T PO; -TRAM50TA2 PO
[2019-01-14] MEDS ORDERED: PENI500T PO (18:37)
[2019-01-14 18:38] VITALS: Ht 167.6 cm; Wt 65.4 kg
[2019-01-14 18:39] VITALS: BP 124/63; PULSE 92; RESP 18
--- NOTE | 2019-01-15 05:16 | TRIAGE ---
OB Triage Datetime Report Generated by CPN: 01/15/2019 05:16 Datetime: 01/14/2019 19:12 Stage of : OB Triage Pain Assessment Pain Scale: 0 Pain Presence: None/Denies Datetime: 01/14/2019 18:34 Assessment Type: Triage Maternal Assessment Level of Consciousness: Keenly Alert, Responsive DTR's/Clonus: DTRs 2+; No Clonus Headache: Denies Blurred Vision: No Respiratory Effort: Unlabored; Regular Rhythm; Equal Expansion Breath Sounds, Left: Clear and Equal Breath Sounds, Right: Clear and Equal Nausea/Vomiting: Denies RUQ Epigastric Pain: Denies Lower Extremities Edema: None Degree: None Upper Extremities Edema: None Degree: None Facial Edema: None Fall Risk Assessment History of Falling: (0) No Secondary Diagnosis: (0) No Ambulatory Aid: (0) Bedrest/Nurse Assist IV Therapy: (0) No Gait: (0) Normal/Bedrest/Immobile Mental Status: (0) Oriented to Own Ability Fall Score: 0 Fall Risk Score Definition: No Risk: No action required Datetime: 01/14/2019 18:33 Time of Arrival: 01/14/2019 18:20 EGA: 32.5 Arrived By: Ambulatory Arrived From: Office Chief Complaint: PT. SENT FROM OFFICE FOR NST/BPP/EFW FOR IUGR Movement: Present Contractions: Denies/Absent Rupture of Membranes: Denies Vaginal Bleeding: None Vaginal Discharge: Denies Recent Sexual Intercouse: Denies Abdominal Trauma: Not Applicable Patient Complaints: None Provider Notified: SHAYLEE Initial Plan: NST/BPP/EFW Datetime: 01/14/2019 18:32 Labor Evaluation Monitor Mode: External Heart Rate Monitor Mode: External US Datetime: 12/11/2018 17:52 Fall Score: 0 Fall Risk Score Definition: No Risk: No action required Datetime: 12/11/2018 17:51 EGA: 27.6
--- NOTE | 2019-02-16 17:56 | PN ---
Triage Information Date/Time 02/16/19 late entry for service done n 01/25/19 Reason for visit: sent from office for antepartum test with EFW Weeks of Gestation 33w1d ? IUGR /Para Diabetes: none Hypertention: none Additional information ?IUGR Objective Heart Rate: 140's Contractions: None Results/Medications Imaging Results BPP 03/12 TIGRE 10 EFW 1908gm , 30.7 % Disposition: Discharge Assessment/Plan A IUP 33w1d no IUGR P f/u with her OB BEN JUNE MD Feb 16, 2019 17:56
== END 2019-01-14 20:15 | disposition home or self-care (01) ==
LOC: OBT 18:27 → L-D 18:28 → OBT 20:15
PROVIDERS: ATTEND Obstetrics & Gynecology
DX: O36.8130 Decreased fetal movements, third trimester, not applicable or unspecified (principal); Z3A.33 33 weeks gestation of pregnancy
CPT/HCPCS: 76815; 76818; Z7500; G0463

== ENCOUNTER 2019-01-31 21:42 | Outpatient (CLI) | payer OTHER ==
[~2019-01-31] VITALS: Ht 167.6 cm; Wt 67.2 kg
[~2019-01-31 21:42] MED LIST changes: +PENI500T PO
[2019-01-31 22:02] VITALS: BP 130/60; PULSE 90; RESP 20; Ht 167.6 cm; Wt 67.2 kg
[2019-01-31] MEDS ORDERED: TERBUTALINE 1 ML ONE (22:20)
[2019-01-31] MEDS ORDERED: LACTATED RINGER'S 1,000 ML IV SCH (22:30)
[2019-01-31] MEDS ORDERED: TERBUTALINE 1 MG/ML INJ SC ONE (22:30)
--- NOTE | 2019-01-31 23:38 | TRIAGE ---
OB Triage Datetime Report Generated by CPN: 01/31/2019 23:38 Datetime: 01/31/2019 22:11 Vaginal Exam Dilatation (cms): 0.0 Effacement (%): 0 Station: -3 Exam By: JESSICA Membrane Status: Intact Vaginal Bleeding: None Cervix, Consistency: Firm Cervix, Position: Posterior Presentation 'A': Unable to Assess Datetime: 01/31/2019 21:50 Headache: Denies Blurred Vision: No Nausea/Vomiting: Denies RUQ Epigastric Pain: Denies Facial Edema: None Pain Assessment Pain Scale: 6 Pain Presence: Intermittent Pain Type: Contraction Pain Location: Abdomen Pain Goal: 0 Pain Relief Measures: Comfort Measures Pain Assessment Comments: FELT 2-3 TIMES PER HOUR Datetime: 01/31/2019 21:47 Assessment Type: Triage Maternal Assessment Level of Consciousness: Keenly Alert, Responsive DTR's/Clonus: DTRs 2+; No Clonus Headache: Denies Blurred Vision: No Respiratory Effort: Unlabored; Regular Rhythm; Equal Expansion Breath Sounds, Left: Clear and Equal Breath Sounds, Right: Clear and Equal Nausea/Vomiting: Denies RUQ Epigastric Pain: Denies Lower Extremities Edema: None Degree: None Upper Extremities Edema: None Degree: None Facial Edema: None Fall Risk Assessment History of Falling: (0) No Secondary Diagnosis: (0) No Ambulatory Aid: (0) Bedrest/Nurse Assist IV Therapy: (0) No Gait: (0) Normal/Bedrest/Immobile Mental Status: (0) Oriented to Own Ability Fall Score: 0 Fall Risk Score Definition: No Risk: No action required Datetime: 01/31/2019 21:45 Time of Arrival: 01/31/2019 21:38 EGA: 35.1 Arrived By: Ambulatory Arrived From: Home Chief Complaint: cramping, pelvic pain Movement: Decreased Contractions: Occasional Time Contractions Began: 01/31/2019 10:00 Contractions: 2-3/hr Rupture of Membranes: Denies Vaginal Bleeding: None Vaginal Discharge: Denies Recent Sexual Intercouse: Denies Abdominal Trauma: Not Applicable Patient Complaints: Contractions; Cramping Time Provider Notified: 01/31/2019 22:05 Provider Notified: SHAYLEE Initial Plan: u/a, obtain vs, nst and call md for orders Datetime: 01/14/2019 20:06 Stage of : OB Triage Labor Evaluation Monitor Mode: External Quality: Mild Pattern: Normal: <= 5 Contractions in 10 Minutes Resting Tone [place]: Relaxed Heart Rate FHR Baseline Rate: 130 Monitor Mode: External US FHR Baseline Changes: No Baseline Change Variability: Moderate 6-25 bpm Accelerations: 15X15 Decelerations: None Category: Category I Datetime: 01/14/2019 18:34 Fall Score: 0 Fall Risk Score Definition: No Risk: No action required Datetime: 01/14/2019 18:33 EGA: 32.5 Datetime: 12/11/2018 17:52 Fall Score: 0 Fall Risk Score Definition: No Risk: No action required Datetime: 12/11/2018 17:51 EGA: 27.6
--- NOTE | 2019-02-01 06:28 | PN ---
Triage Information Date/Time 02/01/19 Reason for visit: Abd/pelvic pain (cramping pelvic pain , DFM) Weeks of Gestation 35w1d /Para x4 x3 C/S Diabetes: none Hypertention: none Objective Vital Signs Date Temp Pulse Resp B/P (MAP) Pulse Ox O2 O2 Flow FiO2 Time Delivery Rate 01/31/19 98.3 90 20 130/60 Room Air 22:02 (83) Intake and Output 01/31/19 01/31/19 02/01/19 1515:00 23:00 07:00 IntakeIntake Total 1000 ml BalanceBalance 1000 ml Heart Rate: 130's Heart Rate Comments CAT I Contractions: >10 Minutes Apart Exam cl/long/high Results/Medications Results 24 hrs Laboratory Tests Test 01/31/19 21:50 Urine Color YELLOW Urine Clarity SLIGHTLY CLOUDY A Urine pH 6.0 Urine Specific [place] 1.019 Urine Ketones NEGATIVE Urine Nitrite NEGATIVE Urine Bilirubin NEGATIVE Urine Urobilinogen NEGATIVE Urine Leukocyte Esterase NEGATIVE Urine Microscopic RBC 35 H Urine Microscopic WBC 2 Urine Mucus MODERATE Urine Hemoglobin 2+ H Urine Glucose NEGATIVE Urine Total Protein 1+ H Medications IV hydration Imaging Results BPP 8/ TIGRE 18cm Disposition: Discharge Assessment/Plan A IUP 35w1d pelvic pain (resolved) P discharge home with routine labor instructions f/u with OB on saturday BEN JUNE MD Feb 01, 2019 06:28
== END 2019-01-31 23:37 | disposition home or self-care (01) ==
LOC: OBT 21:42 → L-D 21:42 → OBT 23:37
PROVIDERS: ATTEND Obstetrics & Gynecology
DX: O26.893 Other specified pregnancy related conditions, third trimester (principal); R10.2 Pelvic and perineal pain; Z3A.35 35 weeks gestation of pregnancy
CPT/HCPCS: 36415; 76818; 81001; 87086; 96360; 96372; J3105; J7120; Z7500; G0463

== ENCOUNTER 2019-02-03 10:45 | Outpatient (CLI) | payer OTHER ==
--- NOTE | 2019-02-03 13:05 | PN ---
Triage Information Date/Time Reason for visit: tacycardia in the office for NST BPP Weeks of Gestation 35+ /Para n/a Diabetes: none Hypertention: none Objective Heart Rate: 140's Contractions: None Disposition: Discharge Assessment/Plan BP 05/14 No ctx --dischargee with precautions --Questions answered ---Follow up with provider PURVI CURTIS M.D. Feb 03, 2019 13:05
--- NOTE | 2019-02-03 13:12 | TRIAGE ---
OB Triage Datetime Report Generated by CPN: 02/03/2019 13:11 Datetime: 02/03/2019 12:55 Maternal Assessment Level of Consciousness: Keenly Alert, Responsive DTR's/Clonus: DTRs 1+ Headache: Denies Blurred Vision: No Respiratory Effort: Unlabored Breath Sounds, Left: Clear and Equal Breath Sounds, Right: Clear and Equal Nausea/Vomiting: Denies RUQ Epigastric Pain: Denies Facial Edema: None Labor Evaluation Frequency: NONE Monitor Mode: External Resting Tone [place]: Relaxed Heart Rate FHR Baseline Rate: 125 Monitor Mode: External US Variability: Moderate 6-25 bpm Accelerations: 15X15 Decelerations: None Category: Category I Pain Assessment Pain Scale: 0 Pain Presence: None/Denies Pain Type: N/A Pain Goal: 3 Vaginal Exam Membrane Status: Intact Datetime: 02/03/2019 10:56 Stage of : OB Triage Assessment Type: Triage Maternal Assessment Level of Consciousness: Keenly Alert, Responsive DTR's/Clonus: DTRs 2+; No Clonus Headache: Denies Blurred Vision: No Respiratory Effort: Unlabored; Regular Rhythm; Equal Expansion Breath Sounds, Left: Clear and Equal Breath Sounds, Right: Clear and Equal Nausea/Vomiting: Denies RUQ Epigastric Pain: Denies Facial Edema: None Temperature Route: Axillary Fall Risk Assessment History of Falling: (0) No Secondary Diagnosis: (0) No Ambulatory Aid: (0) Bedrest/Nurse Assist IV Therapy: (0) No Gait: (0) Normal/Bedrest/Immobile Mental Status: (0) Oriented to Own Ability Fall Score: 0 Fall Risk Score Definition: No Risk: No action required Labor Evaluation Frequency: 0 Monitor Mode: External Pattern: Normal: <= 5 Contractions in 10 Minutes Resting Tone [place]: Relaxed Heart Rate FHR Baseline Rate: 125 Monitor Mode: External US Variability: Moderate 6-25 bpm Accelerations: 10X10 Decelerations: None Category: Category I Pain Assessment Pain Scale: 0 Pain Presence: None/Denies Pain Type: N/A Pain Goal: 3 Pain Relief Measures: Comfort Measures Datetime: 02/03/2019 10:55 Time of Arrival: 02/03/2019 10:43 EGA: 35.4 Arrived By: Ambulatory Arrived From: Office Chief Complaint: REFERRED FROM DR OWUSU FOR POSS TACHY, DENIES LEAKING BLEEDING OR UC'S Movement: Present Contractions: Denies/Absent Rupture of Membranes: Denies Vaginal Bleeding: None Vaginal Discharge: Denies Recent Sexual Intercouse: Denies Abdominal Trauma: Not Applicable Patient Complaints: None Initial Plan: MONITOR, BPP Datetime: 01/31/2019 23:29 Labor Evaluation Frequency: X2 Monitor Mode: External Duration (sec)2399: 40-80 Quality: Mild Pattern: Normal: <= 5 Contractions in 10 Minutes Resting Tone [place]: Relaxed Heart Rate FHR Baseline Rate: 140 Monitor Mode: External US Variability: Moderate 6-25 bpm Accelerations: 15X15 Decelerations: None Category: Category I Pain Assessment Pain Scale: 0 Pain Presence: None/Denies Pain Type: N/A Datetime: 01/31/2019 22:37 Comments: REAPPLIED AFTER U/S Datetime: 01/31/2019 22:24 Comments: U/S AT BEDSIDE Datetime: 01/31/2019 22:23 Labor Evaluation Frequency: X1 Monitor Mode: External Duration (sec)2399: 40 Quality: Mild Pattern: Normal: <= 5 Contractions in 10 Minutes Resting Tone [place]: Relaxed Heart Rate FHR Baseline Rate: 130 Monitor Mode: External US Variability: Moderate 6-25 bpm Accelerations: 15X15 Decelerations: None Category: Category I Datetime: 01/31/2019 21:47 Fall Score: 0 Fall Risk Score Definition: No Risk: No action required Datetime: 01/31/2019 21:45 EGA: 35.1 Datetime: 01/14/2019 18:34 Fall Score: 0 Fall Risk Score Definition: No Risk: No action required Datetime: 01/14/2019 18:33 EGA: 32.5 Datetime: 12/11/2018 17:52 Fall Score: 0 Fall Risk Score Definition: No Risk: No action required Datetime: 12/11/2018 17:51 EGA: 27.6
== END 2019-02-03 13:03 | disposition home or self-care (01) ==
LOC: OBT 10:45 → L-D 10:47 → OBT 13:03
PROVIDERS: ATTEND Obstetrics & Gynecology
DX: O76 Abnormality in fetal heart rate and rhythm complicating labor and delivery (principal); Z3A.35 35 weeks gestation of pregnancy
CPT/HCPCS: 76818; Z7500; G0463

== ENCOUNTER 2019-02-09 08:59 | Inpatient (IN) | payer OTHER ==
[~2019-02-09] VITALS: Ht 167.6 cm; Wt 68.2 kg
[~2019-02-09 08:59] MED LIST changes: -PENI500T PO
[2019-02-09 09:27] VITALS: Ht 167.6 cm; Wt 68.2 kg
[2019-02-09] MEDS ORDERED: TERBUTALINE 1 ML ONE (09:34)
[2019-02-09] MEDS ORDERED: OXYTOCIN 30 UNITS/LR 500 ML IV PRN ×2 (10:00→16:00)
[2019-02-09] MEDS ORDERED: TERBUTALINE 1 MG/ML INJ SC ONE (10:00)
[2019-02-09] MEDS ORDERED: CEFAZOLIN 2 GM/50 ML (PMX) 50 ML IVPB SCH (10:00)
[2019-02-09] MEDS ORDERED: METHYLERGONOVINE 0.2 MG INJ IM PRN ×2 (10:00→16:00)
[2019-02-09] MEDS ORDERED: MISOPROSTOL 200 MCG TAB PR PRN ×2 (10:00→16:00)
[2019-02-09] MEDS ORDERED: CARBOPROST 250 MCG INJ IM PRN ×2 (10:00→16:00)
--- NOTE | 2019-02-09 10:28 | TRIAGE ---
OB Triage Datetime Report Generated by CPN: 02/09/2019 10:28 Datetime: 02/09/2019 10:06 Stage of : Labor Headache: Denies Blurred Vision: No RUQ Epigastric Pain: Denies Facial Edema: None Labor Evaluation Frequency: 3-4 Monitor Mode: External Duration (sec)2399: 70 Quality: Moderate Pattern: Normal: <= 5 Contractions in 10 Minutes Resting Tone [place]: Relaxed Heart Rate FHR Baseline Rate: 140 FHR Baseline Changes: No Baseline Change Variability: Moderate 6-25 bpm Accelerations: 15X15 Decelerations: None Category: Category I Pain Assessment Pain Scale: 6 Vaginal Exam Membrane Status: Ruptured Datetime: 02/09/2019 09:08 Time of Arrival: 02/09/2019 09:03 EGA: 36.3 Arrived By: Wheelchair Arrived From: Home Chief Complaint: srom at 0800, heavy bleeding at home prior to admission Movement: Decreased Contractions: Irregular Time Contractions Began: 02/09/2019 06:30 Rupture of Membranes: Ruptured Vaginal Bleeding: Bright Red Vaginal Discharge: Present Recent Sexual Intercouse: Denies Abdominal Trauma: Not Applicable Patient Complaints: Other Time Provider Notified: 02/09/2019 09:15 Provider Notified: Dr. Haas Initial Plan: efm/ U/S Datetime: 02/09/2019 09:06 Stage of : OB Triage Maternal Assessment Level of Consciousness: Keenly Alert, Responsive DTR's/Clonus: DTRs 2+; No Clonus Headache: Denies Blurred Vision: No Respiratory Effort: Unlabored; Regular Rhythm; Equal Expansion Breath Sounds, Left: Clear and Equal Breath Sounds, Right: Clear and Equal Nausea/Vomiting: Denies RUQ Epigastric Pain: Denies Facial Edema: None Temperature Route: Oral Fall Risk Assessment History of Falling: (0) No Secondary Diagnosis: (0) No Ambulatory Aid: (0) Bedrest/Nurse Assist IV Therapy: (0) No Gait: (0) Normal/Bedrest/Immobile Mental Status: (0) Oriented to Own Ability Fall Score: 0 Fall Risk Score Definition: No Risk: No action required Monitor Mode: External Heart Rate FHR Baseline Rate: 140 Monitor Mode: External US Pain Assessment Pain Scale: 8 Datetime: 02/03/2019 10:56 Fall Score: 0 Fall Risk Score Definition: No Risk: No action required Datetime: 02/03/2019 10:55 EGA: 35.4 Datetime: 01/31/2019 22:11 Presentation 'A': Cephalic Datetime: 01/31/2019 21:47 Fall Score: 0 Fall Risk Score Definition: No Risk: No action required Datetime: 01/31/2019 21:45 EGA: 35.1 Datetime: 01/14/2019 18:34 Fall Score: 0 Fall Risk Score Definition: No Risk: No action required Datetime: 01/14/2019 18:33 EGA: 32.5 Datetime: 12/11/2018 17:52 Fall Score: 0 Fall Risk Score Definition: No Risk: No action required Datetime: 12/11/2018 17:51 EGA: 27.6
[2019-02-09] MEDS: LACTATED RINGER'S 1,000 ML IV SCH ×3 (10:40→20:00)
[2019-02-09] MEDS ORDERED: OXYTOCIN 30 UNITS/LR 500 ML BAG IV ONE (11:01)
[2019-02-09] MEDS ORDERED: morphine SULFATE/PF (10 MG/10 ML) INJ ONE (11:01)
[2019-02-09] MEDS ORDERED: OXYTOCIN 10 UNIT INJ ONE (11:01)
[2019-02-09] MEDS ORDERED: ONDANSETRON 4 MG INJ ONE (11:01)
--- NOTE | 2019-02-09 11:16 | PREAC ---
Date/Time of Note Date/Time of Note DATE: 02/09/19 TIME: 11:13 Anesthesia Eval and Record Evaluation Time Pre-Procedure Interview DATE: 02/09/19 TIME: 11:13 Age 43 Sex female NPO: 8 hrs Preoperative diagnosis IUP Planned procedure Repeat C/Section Past Medical History Past Medical History: Includes : : Surgery & Anesthesia Issues No known issue Meds Anticoagulation: No Beta Dillan within 24 hr: No Reason Beta Dillan not given: Pt. not on B-Dillan Reported Medications Ferrous Sulfate* (Ferrous Sulfate*) 325 Mg Tabec, 325 MG PO DAILY, TAB 12/12/17 [Folic Acid] No Conflict Check, PO DAILY 12/12/17 Vit W-Ca,Fe,FA(<1 mg) ( Vitamins) 1 Each Tablet, 1 EACH PO DAILY, TAB 12/12/17 Current Medications Lactated Ringer's 1,000 ml @ 125 mls/hr Q8H IV Last administered on 02/09/19at 10:42; Admin Dose 125 MLS/HR; Start 02/09/19 at 09:43 Cefazolin Sodium/ Dextrose 50 ml @ 100 mls/hr ONCE IVPB ; Start 02/09/19 at 10:00 Oxytocin/Lactated Ringer's 500 ml @ 125 mls/hr POST IV ; Start 02/09/19 at 10:00 Oxytocin/Lactated Ringer's 500 ml @ 0 mls/hr ONCE PRN IV .VAGINAL BLEEDING; Start 02/09/19 at 10:00 Methylergonovine Maleate (Methergine) 0.2 mg ONCE PRN IM .VAGINAL BLEEDING; Start 02/09/19 at 10:00 Carboprost Tromethamine (Hemabate) 250 mcg ONCE PRN IM .VAGINAL BLEEDING; Start 02/09/19 at 10:00 Misoprostol (Cytotec) 1,000 mcg ONCE PRN [place] .VAGINAL BLEEDING; Start 02/09/19 at 10:00 Meds reviewed: Yes Allergies Coded Allergies: No Known Allergy (Verified , 02/09/19) Allergies Reviewed: Yes Labs/Studies Labs Reviewed: Reviewed by anesthesiologist Result Diagram: 02/09/19 0940 Laboratory Tests 02/09/19 09:40 Blood Bank Test 02/09/19 09:40 Antibody Screen NEGATIVE Blood Type O POSITIVE Rh Immune Globulin Candidate NO test: Positive Studies: ECG Pre-procedure Exam Last vitals BP:112/67, P:78, Spo2:100%, T:98,8 Airway: Adequate mouth opening, Adequate thyromental dist Mallampati: Mallampati II Teeth: Normal Lung: Normal Heart: Normal ASA Physical Status ASA physical status: 2 Emergency: None Planned Anesthetic Neuraxial: Spinal Planned Pain Management Sub-arachniod narcotics, Parenteral pain med Pre-operative Attestations Prior to commencing anesthesia and surgery, the patient was re-evaluated, there was verification of: *The patient's identity *The results of appropriate recent lab work and preoperative vital signs *The above evaluation not changing prior to induction *Anesthetic plan, risk benefits, alternative and complications discussed with patient/family; questions answered; patient/family understands, accepts and wishes to proceed. GARLAND CAMERON MD Feb 09, 2019 11:16
[2019-02-09] MEDS ORDERED: PHENYLephrine 10 MG INJ ONE (11:18)
[2019-02-09] MEDS ORDERED: ONDANSETRON 4 MG INJ IV PRN ×2 (11:30→17:30)
[2019-02-09] MEDS ORDERED: KETOROLAC 30 MG INJ IV PRN (11:30)
[2019-02-09] MEDS ORDERED: NALOXONE (0.4 MG/ML) INJ IV PRN ×2 (11:30→17:30)
[2019-02-09] MEDS ORDERED: morphine 2 MG INJ IV PRN ×2 (11:30→17:30)
[2019-02-09] MEDS ORDERED: DIPHENHYDRAMINE 50 MG INJ IV PRN ×2 (11:30→17:30)
[2019-02-09] MEDS ORDERED: MIDAZOLAM 1 MG/ML 2 ML INJ ONE (11:52)
[2019-02-09] MEDS ORDERED: KETOROLAC 30 MG INJ ONE (12:07)
[2019-02-09] MEDS: OXYTOCIN 30 UNITS/LR 500 ML IV SCH ×4 (13:38→22:47)
--- NOTE | 2019-02-09 13:42 | PAC ---
Date/Time of Note Date/Time of Note DATE: 02/09/19 TIME: 13:41 Post-Anesthesia Notes Post-Anesthesia Note Activity: WNL Respiratory function: WNL Cardiovascular function: WNL Mental status: Baseline Pain reasonably controlled: Yes Hydration appropriate: Yes Nausea/Vomiting absent: Yes Comments BP:122/67, P:88, Spo2:100%, T:98,8 GARLAND CAMERON MD Feb 09, 2019 13:42
[2019-02-09] MEDS ORDERED: HYDROCODONE/APAP (5/325) TAB PO PRN ×2 (16:00)
[2019-02-09] MEDS ORDERED: NACL 0.9% 3 ML SYG IV SCH (16:00)
[2019-02-09] MEDS ORDERED: LANOLIN HPA 1 PKT TOP PRN (16:00)
[2019-02-09 16:10] VITALS: BP 127/65; PULSE 74; RESP 20
[2019-02-09 17:05] VITALS: BP 126/69; PULSE 72; RESP 18
[2019-02-09 19:50] VITALS: BP 115/60; PULSE 73; RESP 19
--- NOTE | 2019-02-09 20:26 | OPR ---
Operative Report Planned Procedure Free Text/Dictation 48 y.o. with an IUP at 36w 3d and with 4 prior c-sections came in today with a h/o ruptured membranes with large gushes of water and lots of bleeding. Procedure date Feb 09, 2019 Procedure(s) Repeat low transverse with a bilateral tubal ligation. Performed by see signature line Health Education Specialist: LEONIE AMADOR MD Anesthesiologist: GARLAND CAMERON MD Pre-procedure diagnosis IUP at 36w 3d. Placental abruption. Desires permanent sterilization. [id number] Anesthesia Type: [id number] spinal Post-Procedure Post-procedure diagnosis IUP at 36w 3d. Partial placental abruption. Desires permanent sterilization. Findings Viable baby girl weighing 2770 grams or 6# 2 oz, 19 " long, and with Apgars of 9/9. Estimated Blood Loss: other (800 ml) Specimen(s) Placenta, both tubes. Grafts/Implant(s) none Complication(s) none Pt Condition post procedure: stable Disposition: PACU Procedure Description Under satisfactory spinal anesthesia, the patient was prepped and draped and placed in a supine position, tilted to the left. An elliptical Pfannenstiel incision was made removing the old scar and carried through the subcutaneous tissue. Bleeders brought under control with electrocautery. Fascia incised to the length of the incision. Rectus muscles from the fascia, divided midline. Peritoneum exposed and entered. Transverse incision was made in the lower segment of the uterus. The prior scar was intact and without a uterine window. Amniotic sac ruptured. Clear amniotic fluid noted however there was a very large blood clot, about 300cc in volume, in the lower uterine segment. The head was elevated through the incision and with gentle fundal pressure the baby was easily delivered. The mouth and nares were bulb suctioned. The cord was doubly clamped and cut after 30 seconds. The baby was brought to the warmer and the team for immediate attention. The placenta was delivered manually intact and will be sent to pathology. The uteris was covered with a wet lap. The uterine cavity was cleaned with dry lap. The uterus was closed in 2 layers using #1 chromic in continuous fashion. The peritoneal cavity irrigated with warm saline. The pt had a bilateral tubal ligation including the fimbria. The right adnexa had evidence of prior surgery and did not have much mobility so not a lot of tube was removed. Placed a stitch of 3-0 silk at the distal end of each remaining portion of tube. The uterus was replaced back into the abdomen and each tubal site was rechecked and noted to be dry. Sponge, needle and instrument count reported to be correct. Abdominal peritoneum closed with 2-0 Chromic con tinuously. Rectus muscle approximated with the same suture. Fascia closed with 0-Vicryl. The subcutaneous tissue was irrigated and closed with 2-0 Chromic and skin was closed with 3-0 Monocryl in a subcuticular stitch. Steristrips with Mastosol were placed. Estimated blood loss 800 mL. Urine was clear. Pt tolerated the procedure well. ILIANA RICH MD Feb 09, 2019 20:26
[2019-02-09] MEDS: KETOROLAC 30 MG INJ IV PRN (21:28)
[2019-02-09] MEDS ORDERED: IBUPROFEN 800 MG TAB PO SCH (22:00)
[2019-02-10] MEDS: KETOROLAC 30 MG INJ IV PRN ×2 (03:40→10:28)
[2019-02-10 03:50] VITALS: BP 118/55; PULSE 81; RESP 20
[2019-02-10] MEDS: LACTATED RINGER'S 1,000 ML IV SCH ×3 (04:00→20:00)
[2019-02-10 08:00] VITALS: BP 110/66; PULSE 78; RESP 18
[2019-02-10] MEDS ORDERED: DOCUSATE SODIUM 100 MG CAP PO ONE (14:00)
--- NOTE | 2019-02-10 14:11 | QN ---
Documentation Comment POD #1 s/p repeat Pt feels well with somewhat less than adequate pain control. The orders were for [place] but she cannot take it due to an adverse reaction. Called the pharmacy and found one box of Tylenol#3 left that I can use for her. +flatus but no BM. Tolerating a regular diet. T= 97.7 BP 110/66 Abdomen soft, ND. Fundus firm. Dressing clean, dry and intact. WBC 7.7 Hgb 8,4 Plts 178K P: Continue car. Colace 200 mg p.o. x 1 now then 100 BID. Tylenol #3. ILIANA RICH MD Feb 10, 2019 14:11
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
[2019-02-10] MEDS: IBUPROFEN 800 MG TAB PO SCH ×2 (14:35→21:33)
[2019-02-10 16:00] VITALS: BP 121/68; PULSE 80; RESP 18
[2019-02-10] MEDS: ACETAMINOPHEN/CODEINE #3 TAB PO PRN ×2 (17:03→22:18)
[2019-02-10 19:44] VITALS: BP 124/75; PULSE 81; RESP 18
[2019-02-11] VITALS: BP 118/75; PULSE 72; RESP 19
[2019-02-11] MEDS: ACETAMINOPHEN/CODEINE #3 TAB PO PRN ×3 (02:10→12:19)
[2019-02-11 04:00] VITALS: BP 123/75; PULSE 76; RESP 20
[2019-02-11] MEDS: LACTATED RINGER'S 1,000 ML IV SCH (04:00)
[2019-02-11] MEDS: IBUPROFEN 800 MG TAB PO SCH ×3 (06:21→21:29)
[2019-02-11 08:00] VITALS: BP 128/44; PULSE 103; RESP 18
[2019-02-11] MEDS: DOCUSATE SODIUM 100 MG CAP PO SCH ×2 (10:11→21:28)
[2019-02-11 16:00] VITALS: BP 130/72; PULSE 82; RESP 18
[2019-02-11 20:10] VITALS: BP 124/74; PULSE 78; RESP 17
[2019-02-12 04:00] VITALS: BP 138/81; PULSE 70; RESP 18
[2019-02-12] MEDS: IBUPROFEN 800 MG TAB PO SCH ×2 (05:32→13:27)
[2019-02-12 08:00] VITALS: BP 129/79; PULSE 73; RESP 16
[2019-02-12] MEDS: DOCUSATE SODIUM 100 MG CAP PO SCH (08:59)
[2019-02-12] MEDS ORDERED: DIPHTH/TET/ACEL PERTUSS (ADULT) 0.5 ML VIAL IM* ONE (09:00)
--- NOTE | 2019-02-12 09:18 | PD.PPDC ---
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 Condition [id number] Patient Condition: [id number] Good Diet [id number] Diet: Yrnyz0e Resume Regular Diet Activity/Restrictions [id number] Activity: [id number] Bedrest May be up to bathroom May be up for meals May Shower [id number] Restrictions: [id number] No Exercising No Lifting No Driving Minimize Walking Minimize Stair-climbing No Sexual Activity Nothing in the Vagina No [place] No Tampons, douche Wound/Drain Care Instructions [id number] Wound/Drain Care [id number] Remove Steri Strips in 2 Instructions: weeks Keep clean and dry Follow-up Follow-up with Physician: 2, Week/Weeks Return to clinic for [id number] STATION MASTER Instructions: Hwlee3x Fever greater than 101 Chills ILIANA RICH MD Feb 12, 2019 09:18
[2019-02-12] MEDS ORDERED: IBUP800T48 PO (09:19)
--- NOTE | 2019-02-12 09:22 | DS ---
Date/Time of Note Date/Time of Note DATE: 02/12/19 TIME: 09:20 Obstetrical Discharge Record Final Diagnosis Final Diagnosis: delivered Section Section: Repeat Primary Indication Evolving placental abruption. Complications Augmentation: No Induction: No Third Trimester Bleeding: Abruptio Rupture of Membranes: Yes Condition on Discharge Physical Assessment Last Vitals: 98.3 BP 138/81 Voiding: Yes Bowel Movement: Yes Breast: Filling Fundus: Firm Abdomen and Incision: Clean dry and intact with steristrips. Calf Tenderness: No Patient Condition: Good ILIANA RICH MD Feb 12, 2019 09:22
[2019-02-12] MEDS ORDERED: MEASLES,MUMPS,RUBELLA VACCINE INJ SC* ONE (09:30)
--- NOTE | 2019-02-13 14:56 | DELSUM ---
Delivery Summary A-C Datetime Report Generated by CPN: 02/13/2019 14:56 DELIVERY PERSONNEL Hamper Maker: Ghukasyan, Estrella MATERNAL INFORMATION Delivery Anesthesia: Spinal Medications in Delivery: see anesthesia Delivery QBL (ml): 800 Placenta Cultured: No Maternal Complications: Other Other Maternal Complications: c/s x3, bleeding LABOR SUMMARY EDC: 03/06/2019 00:00 No. Babies in Womb: 1 Attempted: No Labor Anesthesia: None LABOR INFORMATION Reason for Induction: Not Applicable Onset of Labor: 02/09/2019 06:30 Complete Dilatation: 02/09/2019 11:26 Group B Beta Strep: Done, Result Unknown Antibiotics # of Doses: 1 Antibiotics Time of Last Dose: 02/09/2019 11:00 Steroids Given: None Reason Steroids Not Administered: Not Applicable MEMBRANES Membranes Rupture Method: Artificial Rupture of Membranes: 02/09/2019 11:25 Length of Rupture (hr): 0.02 Amniotic Fluid Color: Clear Amniotic Fluid Amount: Small Amniotic Fluid Odor: None STAGES OF LABOR Stage 1 hr: 4 Stage 1 min: 56 Stage 2 hr: 0 Stage 2 min: 0 Stage 3 hr: 0 Stage 3 min: 1 Total Time in Labor hr: 4 Total Time in Labor min: 57 CSECTION DELIVERY Primary Indication: Repeat Elective Secondary Indication: Other Other Secondary Indication: tubal ligation CSection Urgency: Emergency CSection Incidence: Repeat Labor: Labor Elective: Nonelective CSection Incision: Lower Uterine Transverse Sterilization Procedure: [facility] BABY A INFORMATION Delivery Date/Time: 02/09/2019 11:26 Method of Delivery: Born in Route : No : N/A Forceps: N/A Vacuum Extraction: N/A Shoulder Dystocia : N/A SHOULDER DYSTOCIA BABY A Infant Delivery Date/Time: 02/09/2019 11:26 PRESENTATION/POSITION BABY A Presentation: Cephalic Cephalic Presentation: Vertex Vertex Position: Left Occipital Anterior Breech Presentation: N/A PLACENTA INFORMATION BABY A Placenta Delivery Time : 02/09/2019 11:27 Placenta Method of Delivery: Manual Removal Placenta Status: Delivered SCORES BABY A Heart Rate 1 min: >100 bpm Resp Effort 1 min: Good Cry Reflex Irritability 1 min: Cough/Sneeze/Pulls Away Muscle Tone 1 min: Active Motion Color 1 min: Body [place], Extremit Blue Resuscitation Effort 1 min: Tactile Stimulation SCORE 1 MIN: 9 Heart Rate 5 min: >100 bpm Resp Effort 5 min: Good Cry Reflex Irritability 5 min: Cough/Sneeze/Pulls Away Muscle Tone 5 min: Active Motion Color 5 min: Body [place], Extremit Blue Resuscitation Effort 5 min: Tactile Stimulation SCORE 5 MIN: 9 INFANT INFORMATION BABY A Gestational Age at Delivery: 36.3 Gestational Status: Late - 34- 36.6 Weeks Infant Outcome : Liveborn, with signs of life Condition : Stable Sex: Female IDENTIFICATION/MEDS BABY A ID Band Number: [id number] ID Band Location: Right Leg; Left Arm Sensor Applied: Yes Sensor Number: [id number] Sensor Location : Cord Clamp Vitamin K Given : Not Given Erythromycin Given: Not Given WEIGHT/LENGTH BABY A Birthweight (gm): 2770 Infant Weight (lb): 6 Weight (oz): 2 Infant Length (in): 19.00 Infant Length (cm): 48.26 CORD INFORMATION BABY A No. Cord Vessels: 3 Nuchal Cord : N/A Cord Blood Taken: Yes Infant Suction: Mouth; Nose ASSESSMENT BABY A Complications: None Physical Findings at Delivery: Within Normal Limits Respirations: Appears Normal Spray Rig Operator/ALS Called : No Care By: Josey WHITE RN Transferred To: Remains with Mother
== END 2019-02-12 13:43 | disposition home or self-care (01) | DRG 785 ==
LOC: L-D 08:59 → OBT 08:59 → L-D 09:47 → PP1 16:11
PROVIDERS: ADMIT Obstetrics & Gynecology; ATTEND Obstetrics & Gynecology
PROC: 0UT70ZZ Resection of Bilateral Fallopian Tubes, Open Approach (ICD-10-PCS; 2019-02-09)
PROC: 10D00Z1 Extraction of Products of Conception, Low, Open Approach (ICD-10-PCS; principal; 2019-02-09 10:30)
DX: O60.13X0 Preterm labor second trimester with preterm delivery third trimester, not applicable or unspecified (principal); O65.5 Obstructed labor due to abnormality of maternal pelvic organs; O34.211 Maternal care for low transverse scar from previous cesarean delivery; Z3A.36 36 weeks gestation of pregnancy; Z37.0 Single live birth; Z30.2 Encounter for sterilization
CPT/HCPCS: 76818; 80307; 85025; 85610; 85730; 86592; 86850; 86900; 86901; 87340; 88302; 88307; 90715; 99464; G0463; J0690; J1200; J1885; J2250; J2270; J2274; J2370; J2405; J2590; J3105; J7120